=== PATIENT | female | born 1955 | race Caucasian/White ===

== ENCOUNTER 2023-10-05 16:08 | Emergency (ER) | payer MEDICARE, BC ==
[~2023-10-05] VITALS: Ht 157.5 cm; Wt 59.0 kg
[2023-10-05 16:23] VITALS: O2SAT 99
== END 2023-10-05 19:35 | disposition home or self-care (01) ==
LOC: ER 16:17
DX: S80.12XA Contusion of left lower leg, initial encounter (principal); E03.9 Hypothyroidism, unspecified; V89.2XXA Person injured in unspecified motor-vehicle accident, traffic, initial encounter; Y93.89 Activity, other specified; Y92.89 Other specified places as the place of occurrence of the external cause; Y99.8 Other external cause status
CPT/HCPCS: A4606; A4663